=== PATIENT | female | born 2000 | race Two or more races ===

== ENCOUNTER 2019-12-29 18:29 | Emergency (ER) | payer OTHER, SELFPAY ==
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
[2019-12-29 18:36] VITALS: BP 142/79; PULSE 99; RESP 20; TEMP 36.8; O2SAT 99
--- NOTE | 2019-12-29 18:53 | PC.NURSE ---
PT DECLINED ICE FOR COMFORT
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
== END 2019-12-29 19:47 | disposition home or self-care (01) ==
PROVIDERS: Emergency Provider Nurse Practitioner Family
DX: R30.0 Dysuria (principal); S92.241A Displaced fracture of medial cuneiform of right foot, initial encounter for closed fracture; Z87.891 Personal history of nicotine dependence; X58.XXXA Exposure to other specified factors, initial encounter
CPT/HCPCS: 73630; 81003; 87086; 87088; 99214; G0463

== ENCOUNTER 2022-01-23 18:25 | Emergency (ER) | payer OTHER, SELFPAY ==
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
[2022-01-23 18:37] VITALS: BP 121/66; PULSE 90; RESP 20; TEMP 36.6; O2SAT 100
== END 2022-01-23 18:53 | disposition home or self-care (01) ==
PROVIDERS: Emergency Provider Nurse Practitioner Family
DX: H60.502 Unspecified acute noninfective otitis externa, left ear (principal); H66.92 Otitis media, unspecified, left ear; J45.909 Unspecified asthma, uncomplicated; Z87.891 Personal history of nicotine dependence
CPT/HCPCS: 99213; G0463

== ENCOUNTER 2022-06-14 11:31 | Emergency (ER) | payer OTHER, SELFPAY ==
[2022-06-14 11:40] VITALS: BP 137/76; PULSE 102; RESP 18; TEMP 37; O2SAT 98
--- NOTE | 2022-06-14 12:14 | ED.URI ---
HPI - URI/Sore Throat General Chief Complaint: Upper Respiratory Infection Stated Complaint: sore throat fever aches headache Time Seen by Provider: 06/14/22 12:10 Source: patient, RN notes reviewed and old records reviewed Mode of arrival: ambulatory Limitations: no limitations History of Present Illness HPI Narrative: 21 year old female who presents to [facility] care with complaints of sore throat, intermittent fevers, headache and some cough since the 07 of June. Patient reports that in the past 2 days her throat has become increasingly sore and her cough has been more frequent.She has been taking Ibuprofen for her discomfort. She denies any shortness of breath or any wheezing or any chest pain or tightness. Patient has not had COVID vaccination or flu shot. MD elicited complaint: fever, cough and sore throat Pertinent past history: other (bronchitis) Onset (ago): day(s) (6 with increase symptoms for 2) Pain scale (0-10): 6 Able to tolerate fluids by mouth: Yes Treatments prior to arrival: ibuprofen Related Data Allergies Allergy/AdvReac Type Severity Reaction Status Date / Time nickel AdvReac Mild rash Verified 06/17/22 16:40 Review of Systems Review of Systems: CONSTITUTIONAL: Reports malaise, chills, sweats, or fever. EYES: Denies visual changes, redness, or discharge. ENT: Reports rhinorrhea, congestion, sinus pain, no otalgia positive for sore throat. CARDIOVASCULAR: Denies chest pain, palpitations, or edema. RESPIRATORY: Reports cough.? Denies dyspnea. GASTROINTESTINAL: Denies abdominal pain, nausea, vomiting, diarrhea SKIN: Denies rash or itching. MUSCULOSKELETAL: Reports some myalgia NEUROLOGIC: reports headache. All systems reviewed & are unremarkable except as noted in HPI and below PMFSH Past Medical History Medical History Asthma Bronchitis Surgical History Surgical History No significant past surgical history Family History Family History Father Hypertension Diabetes mellitus Mother Asthma Sibling Asthma Social History Social History (Updated 06/21/22 @ 12:27 by Fatou Guillen NP) Smoking packs per day: 0.5 Smoking cigarettes per day: 10.0 Years smoked: 3 Smoking pack-years: 1.50 Smoking status: Current every day smoker Tobacco type: cigarettes Second hand tobacco smoke exposure: Yes Alcohol intake: current Alcohol use details: social Substance use: current Substance use type: marijuana Last use: occasional use Living arrangements: with family Gender identity (if verbalized by the patient): Female Comments At time of signature, agree with nursing past medical, surgical, social and family history. There is no relevant family history pertinent to the presenting complaint Exam Narrative: GENERAL: Well-appearing, well-nourished, and in no acute distress. HEAD: Normocephalic EYES: PERRLA, conjunctivae clear ENT: Nares clear, turbinates edematous and erythematous, clear discharge. Mucous membranes moist. TM pearly garcia with dull light reflex bilaterally; no tragal tenderness. Oropharynx erythematous without lesions. Tonsils enlarged and with exudate, no drooling, no hoarseness, no trismus, uvula midline. NECK: Supple. No lymphadenopathy CHEST: Clear to auscultation, breath sounds equal. No wheezing, rhonchi, rales, or stridor. No respiratory distress, speaks in full sentences.acute cough,SAO2 98% on room air HEART: Regular rate and rhythm. No murmur heard. SKIN: Warm, dry, no rash. NEURO: Alert and oriented x3. PSYCH: Normal mood and affect Course Course Emergency Course: Patient is aware of diagnosis, understands and agrees to treatment plan.? Anticipatory guidance given.? Patient agrees to follow-up as directed and is aware of reasons to seek care at the em
== END 2022-06-14 12:33 | disposition home or self-care (01) ==
PROVIDERS: Emergency Provider Registered Nurse
DX: J03.90 Acute tonsillitis, unspecified (principal); F17.210 Nicotine dependence, cigarettes, uncomplicated; J45.909 Unspecified asthma, uncomplicated; Z28.310 Unvaccinated for COVID-19
CPT/HCPCS: 87081; 87880; 99213; G0463

== ENCOUNTER 2022-06-17 16:08 | Emergency (ER) | payer OTHER, SELFPAY ==
[2022-06-17 16:24] VITALS: BP 129/66; PULSE 65; RESP 15; TEMP 36.5; O2SAT 99
--- NOTE | 2022-06-17 17:00 | ED.EAR ---
HPI - Ear Problem General Chief complaint: Upper Respiratory Infection Stated complaint: Ear Problem Time Seen by Provider: 06/17/22 16:57 Source: patient and RN notes reviewed Mode of arrival: ambulatory Limitations: no limitations History of Present Illness HPI Narrative: 41-year-old female presents with concern for ear pain. She reports she was seen here several days ago and was given amoxicillin for tonsillitis. Reports her throat is starting to feel better, however her ears are now hurting. She has been taking the antibiotic as directed. She reports muffled hearing. MD Complaint: ear pain Related Data Allergies Allergy/AdvReac Type Severity Reaction Status Date / Time nickel AdvReac Mild rash Verified 06/17/22 16:40 Review of Systems Review of Systems: CONSTITUTIONAL: Denies malaise, chills, sweats, or fever. EYES: Denies visual changes, redness, or discharge. ENT: Reports rhinorrhea, congestion, sore throat, ear pain CARDIOVASCULAR: Denies chest pain, palpitations, or edema. RESPIRATORY: Denies cough. Denies dyspnea. GASTROINTESTINAL: Denies abdominal pain, nausea, vomiting, diarrhea SKIN: Denies rash or itching. MUSCULOSKELETAL: Denies myalgia. NEUROLOGIC: Denies headache. All systems reviewed & are unremarkable except as noted in HPI and below PMFSH Past Medical History Medical History (Updated 06/17/22 @ 17:05 by Bettye Rizvi NP) Asthma Surgical History Surgical History (Updated 12/29/19 @ 19:06 by BRI Nolen) No significant past surgical history Family History Family History (Updated 12/29/19 @ 19:07 by BRI Nolen) Father Hypertension Diabetes mellitus Mother Asthma Sibling Asthma Social History Social History (Updated 12/29/19 @ 19:08 by BRI Nolen) Smoking status: Former smoker Tobacco type: cigarettes Second hand tobacco smoke exposure: Yes Additional smoking assessment comments: Smoked occassionally in the past Alcohol intake: current Substance use: current Substance use type: marijuana Gender identity (if verbalized by the patient): Female Comments At time of signature, agree with nursing past medical, surgical, social and family history. There is no relevant family history pertinent to the presenting complaint Exam Narrative: GENERAL: Well-appearing, well-nourished, and in no acute distress. HEAD: Normocephalic EYES: PERRLA, conjunctivae clear ENT: Nares clear, turbinates edematous, clear discharge. Mucous membranes moist. Right TM pearly garcia with dull light reflex, left TM erythematous bulging; no tragal tenderness. Oropharynx erythematous without lesions. Tonsils not enlarged and without exudate, no drooling, no hoarseness, no trismus, uvula midline. NECK: Supple. No lymphadenopathy CHEST: Clear to auscultation, breath sounds equal. No wheezing, rhonchi, rales, or stridor. No respiratory distress, speaks in full sentences. HEART: Regular rate and rhythm. No murmur heard. SKIN: Warm, dry, no rash. NEURO: Alert and oriented x3. PSYCH: Normal mood and affect Course Course Emergency Course: Patient is aware of diagnosis, understands and agrees to treatment plan. Anticipatory guidance given. Patient agrees to follow-up as directed and is aware of reasons to seek care at the emergency department. Portions of this record may have been created with voice recognition software Level of Care: Express Care Visit Vital Signs Vital signs: Vital Signs Temperature 97.7 F 06/17/22 16:24 Pulse Rate 65 06/17/22 16:24 Respiratory Rate 15 06/17/22 16:24 Blood Pressure 129/66 06/17/22 16:24 Pulse Oximetry 99 06/17/22 16:24 Oxygen Delivery Room Air 06/17/22 16:24 Temperature 97.7 F 06/17/22 16:24 Pulse Rate 65 06/17/22 16:24 Respiratory Rate 15 06/17/22 16:24 Blood Pressure 129/66 06/17/22 16:24 Pulse Oximetry 99 06/17/22 16:24 Oxygen Delivery Room Air 06/17/22 16:24 Reviewed.
== END 2022-06-17 17:10 | disposition home or self-care (01) ==
PROVIDERS: Emergency Provider Nurse Practitioner
DX: H66.002 Acute suppurative otitis media without spontaneous rupture of ear drum, left ear (principal); Z87.891 Personal history of nicotine dependence; J45.909 Unspecified asthma, uncomplicated
CPT/HCPCS: 99213; G0463

== ENCOUNTER 2023-11-20 13:19 | Emergency (ER) | payer OTHER, SELFPAY ==
[2023-11-20 13:34] VITALS: BP 140/78; PULSE 64; RESP 20; TEMP 36.5; O2SAT 100
--- NOTE | 2023-11-20 13:50 | ED.URI ---
HPI - URI/Sore Throat General Chief Complaint: Upper Respiratory Infection Stated Complaint: Throat History of Present Illness HPI Narrative: Presents with sore throat body aches and fever. No trouble swallowing no drooling Related Data Allergies Allergy/AdvReac Type Severity Reaction Status Date / Time nickel AdvReac Mild rash Verified 11/20/23 13:44 Review of Systems Review of Systems: CONSTITUTIONAL: Denies chills, or sweats. Reports fever and generalized body aches EYES: Denies visual changes, redness, or discharge. ENT: Denies otalgia. Reports nasal congestion runny nose and sore throat CARDIOVASCULAR: Denies chest pain, palpitations, or edema. RESPIRATORY: Denies dyspnea. Reports occasional cough GASTROINTESTINAL: Denies abdominal pain, nausea, vomiting, or diarrhea. GENITOURINARY: Denies dysuria or hematuria. SKIN: Denies rash or itching. MUSCULOSKELETAL: Denies back pain, joint pain, or myalgia. Reports generalized body aches NEUROLOGIC: Denies headache, numbness, or weakness. PSYCHIATRIC: Denies anxiety or depression. PMFSH Past Medical History Medical History Asthma Bronchitis Surgical History Surgical History No significant past surgical history Family History Family History Father Hypertension Diabetes mellitus Mother Asthma Sibling Asthma Social History Social History (Updated 06/21/22 @ 12:27 by Fatou Guillen NP) Smoking packs per day: 0.5 Smoking cigarettes per day: 10.0 Years smoked: 3 Smoking pack-years: 1.50 Smoking status: Current every day smoker Tobacco type: cigarettes Second hand tobacco smoke exposure: Yes Alcohol intake: current Alcohol use details: social Substance use: current Substance use type: marijuana Last use: occasional use Living arrangements: with family Gender identity (if verbalized by the patient): Female Comments At time of signature, agree with nursing past medical, surgical, social and family history. There is no relevant family history pertinent to the presenting complaint Exam Narrative: The patient is a well-developed, well-nourished in no acute distress. SKIN: Skin is warm and dry without erythema, swelling or exudate. There is good turgor. No tenting. HEAD: Atraumatic. Normocephalic. No temporal or scalp tenderness. EYES: Moist and bright. Sclera and conjunctivae normal. No discharge. PERRLA. Extraocular motions intact. Gross visual acuity intact. EARS: Pinna is normal shape and contour. Clear external auditory canals. TM pearly montalvo with good cone of light, no erythema or suppuration. Bilateral cerumen noted no gross hearing deficit. NOSE: pink, moist mucosa with good air movement. Clear rhinorrhea without nasal flaring. Septum midline. Mouth: moist mucous membranes. THROAT; mild erythema noted to posterior oropharynx with moderate postnasal drainage. Without exudate or ulceration.. Uvula midline. Normal movement of soft palate. NECK: Supple and nontender with full range of motion without discomfort. No meningeal signs. LUNGS: Equal and bilateral breath sounds without wheezes, rales or rhonchi. CHEST: The chest wall is without retractions or use of accessory muscles. HEART: Has a regular rate and rhythm without murmur, gallops, click or rub. ABDOMEN: Soft, nontender with positive active bowel sounds. No rebound tenderness. EXTREMITIES: Without cyanosis, clubbing or edema. Equal 2+ distal pulses and 2 second capillary refill noted. NEUROLOGIC: alert, active, . The patient moves all extremities with normal muscle strength. Normal muscle tone is noted. Normal coordination is noted. NO focal neurological findings noted. Course Course Level of Care: Express Care Visit Vital Signs Vital signs: Vital Signs Temperature 36.5 C 11/20/23 13:34
== END 2023-11-20 14:12 | disposition home or self-care (01) ==
PROVIDERS: Emergency Provider Nurse Practitioner Family
DX: J06.9 Acute upper respiratory infection, unspecified (principal); J02.9 Acute pharyngitis, unspecified; F17.210 Nicotine dependence, cigarettes, uncomplicated; F12.90 Cannabis use, unspecified, uncomplicated; J45.909 Unspecified asthma, uncomplicated
CPT/HCPCS: 87081; 87880; 99213; G0463